=== PATIENT | male | born 1950 | race Caucasian/White ===

== ENCOUNTER 2020-01-12 12:26 | Inpatient (IN) | payer MEDICARE, OTHER ==
[2020-01-12] MEDS ORDERED: Ketorolac Tromethamine 30 MG/ML VIAL ONE (13:14)
[2020-01-12] MEDS ORDERED: HYDROcodone/Acetaminophen 10/325 mg Tablet ONE (13:14)
[2020-01-12 13:30] LABS: #Eosinphils 0.1 thou/uL (0.0-0.7); #Lymphocytes 2.2 thou/uL (1.20-3.40); #Monocytes 0.8 thou/uL (0.11-0.59); #Neutrophils 10.5 thou/uL (1.40-6.50); %Basophils 0.2 % (0.0-1.0); %Eosinophils 0.6 % (0.0-10.0); %Lymphocytes 15.9 % (21.0-51.0); %Neutrophils 77.3 % (42.0-75.0); Mean Corpuscular HGB CONC 35.1 g/dL (32.0-36.0); Mean Corpuscular Hemoglobin 33.8 pg (27.0-31.0); Mean Corpuscular Volume 96.2 fL (78.0-98.0); Platelet Count 276 thou/uL (130-400); RBC Distribution Width 11.4 % (11.5-14.5); Red Blood Cell (RBC) Count 4.16 mill/uL (4.70-6.10); White Blood Cell (WBC) Count 13.5 thou/uL (4.8-10.8)
[2020-01-12 13:39] LABS: ALT (SGPT) 46 U/L (8-55); AST (SGOT) 45 U/L (5-34); Albumin 4.3 g/dL (3.4-4.8); Alkaline Phosphatase 71 U/L (40-110); Anion Gap 14 mmol/L (10-20); BUN (Urea Nitrogen) 19 mg/dL (8.4-25.7); Bilirubin, Total 0.9 mg/dL (0.2-1.2); Calc. Creatinine Clearance 0 mL/min (70-130); Calcium 9.3 mg/dL (7.8-10.44); Carbon Dioxide 23 mmol/L (23-31); Chloride 106 mmol/L (98-107); Estimated GFR-MDRD 50; Globulin 3.1 g/dL (2.4-3.5); Glucose 202 mg/dL (80-115); Potassium 3.7 mmol/L (3.5-5.1); Protein, Total 7.4 g/dL (5.8-8.1); Sodium 139 mmol/L (136-145)
[2020-01-12] MEDS ORDERED: Morphine 4 MG/ML VIAL ONE ×2 (14:36→16:35)
[2020-01-12] MEDS ORDERED: Ondansetron PF 4 MG/2 ML Vial ONE (14:36)
--- NOTE | 2020-01-12 15:11 | RAD ---
Exam:Right shoulder 3 views HISTORY: Fall. Pain. COMPARISON: None FINDINGS: Glenohumeral joint space is preserved. No fracture or dislocation. Slight widening of the a cromioclavicular joint space with slightly high riding distal clavicle. Correlate for grade 1 AC joint separation. There appear to be traction is involving the anterior right first, second rib and posterior lateral r ight fourth, fifth and seventh ribs. No obvious pneumothorax. IMPRESSION: 1. Possible grade 1 AC joint separation. 2. Multiple right rib fractures.
--- NOTE | 2020-01-12 15:13 | RAD ---
Exam: One view chest Right RIBS 3 views HISTORY: Trauma. Fall. Pain. FINDINGS: 1. View chest Normal cardiac silhouette. Pulmonary vessels and hilum are normal. Costophrenic clear. Chronic lung parenchymal changes are suspected. There is increased lucency in the right lung apex. The possibility pneumothorax cannot. Right rib series: There are fractures involving the anterior right first and second ribs. Additional fractures involving the posterior lateral right fourth, fifth, sixth and seventh ribs. IMPRESSION: 1. Right-sided pneumothorax. 2. Multiple right rib fractures..
[2020-01-12 15:56] LABS: PTT 23.8 sec (22.9-36.1)
[2020-01-12 16:00] LABS: Alcohol Less than 10 mg/dL (Less than 10); Magnesium 2.1 mg/dL (1.6-2.6); Phosphorus 2.2 mg/dL (2.3-4.7)
[2020-01-12] MEDS ORDERED: Morphine 4 MG/ML VIAL SLOW IVP PRN (16:03)
[2020-01-12] MEDS ORDERED: Ondansetron PF 4 MG/2 ML Vial IVP PRN (16:03)
[2020-01-12] MEDS ORDERED: Dextrose 5% in Water 1,000 ML IV PRN (16:03)
[2020-01-12] MEDS ORDERED: Dextrose 50% Abboject 50 ML SYRINGE SLOW IVP PRN (16:03)
[2020-01-12] MEDS: Acetaminophen 500 MG TAB PO SCH ×2 (16:15→21:41)
[2020-01-12] MEDS ORDERED: Potassium Phosphate 30 MMOL in Sodium Chloride 0.9% 250 ML 250 ML IVPB SCH (16:15)
--- NOTE | 2020-01-12 17:21 | CT ---
CT BRAIN 01/12/20 PROVIDED CLINICAL HISTORY: Concussion symptoms, status post fall. FINDINGS: The ventricular system appears normal in size and morphology. There is no evidence for intracranial h emorrhage or mass effect. The extracranial soft tissues and osseous structures demonstrate an unremar kable CT appearance. IMPRESSION: No evidence for intracranial hemorrhage or mass effect. POS: JED
--- NOTE | 2020-01-12 17:24 | CT ---
CT CERVICAL SPINE WITHOUT CONTRAST: 01/12/20 HISTORY: Patient fell from a height of 6 feet while on a ladder. Pain. Right rib fractures. Pneumothorax. FINDINGS: No craniocervical dissociation. Appropriate alignment of the lateral masses of C1 and C2. Intact odon toid process. There is facet hypertrophy throughout the cervical spine. Soft tissue neck structures do not demonstrate any posttraumatic change. There are varying degrees of central canal stenosis and foraminal narrowing on the basis of degenerat judi change. Cervical spine vertebral body heights are maintained. No cervical spine fracture. Fracture involving the anterior right first rib, posterior right third and fourth ribs. There is post traumatic right sided pleural fluid and a right apical pneumothorax. IMPRESSION: 1. Posttraumatic change of the right hemithorax as described above. 2. No cervical spine fracture. POS: PPP
[2020-01-12 18:16] VITALS: BMI 30.1
[2020-01-12] MEDS ORDERED: hydrALAZINE 20 MG/ML VIAL SLOW IVP PRN (18:39)
--- NOTE | 2020-01-12 18:54 | CT ---
CHEST CT WITHOUT CONTRAST THORACIC AND LUMBAR SPINE CT LIMITED: 01/12/20 HISTORY: Patient fell from a height of 6 feet while on a ladder. Radiographs demonstrate pneumothorax and righ t rib fractures. FINDINGS: Mediastinum: No mass, lymphadenopathy or hematoma. Evaluation is limited by the lack of IV contrast. Normal heart size. Calcification of the aortic valve. Normal caliber aorta. Central pulmonary arterie s have a normal caliber. Subdiaphragmatic structures: No posttraumatic changes. Surgically absent gallbladder. Trachea and central bronchi: Patent. Small right sided pleural effusion suggesting blood. There are dependent atelectatic changes in both lower lobes. Possibility of a small contusion in the lateral aspect of the right lower lobe measuring 1.1 cm with peripheral edema/hemorrhage as well as contusion in the right lower lobe more linear in appearance cannot be excluded. There is a moderate right sided pneumothorax without cardiomediastinal shift. No posttraumatic changes in the left lung. Intact sternum. Intact clavicles. Intact scapula. Left ribs are intact. Fractures involving the anterior right first rib, posteromedial right second rib, posterior right thi rd rib, posterior right fourth, fifth, sixth ribs. Lateral fourth, fifth, sixth ribs. Lateral right s eventh rib. On the axial images, there are fractures involving the posterior right seventh and eighth ribs. Correlate for flail chest given two separate fractures involving the right fourth, fifth, sixt h and seventh ribs. Limited CT of the thoracic and lumbar spine: No fractures or malalignment. There is a small amount of subcutaneous emphysema in the right chest wall. IMPRESSION: 1. Moderate right sided pneumothorax. 2. At least four ribs have two separate fractures within them, raising the possibility of a flai l chest. There is associated subcutaneous emphysema in the right chest wall. 3. Possible pulmonary contusion involving the right lower lobe in two separate areas. POS: PPP
[2020-01-12] MEDS: traMADol HCl 50 MG TAB PO SCH ×2 (19:13→23:39)
[2020-01-12] MEDS: Sodium Chloride 0.9% 1,000 ML IV SCH (19:14)
--- NOTE | 2020-01-12 21:12 | HP ---
TRAUMA SURGEON: Dr. Sharma. CONSULTING PHYSICIAN: None. HISTORY OF PRESENT ILLNESS: The patient is a 69-year-old male presented to the emergency department after a fall of 6 feet from a ladder onto his right thigh. The patient reported he was climbing up the ladder when it rocked, then he subsequently fell about 6 feet onto his right side. Denies loss of consciousness. Reports he is having right-sided shoulder and chest wall pain. Denies any anticoagulation use. He was able to ambulate after the fall and was brought to the emergency department by his son. At the time of my evaluation, the patient was saturating 95% on room air. Reported he had received pain medications in the emergency department and they were working. REVIEW OF SYSTEMS: All additional 10-point review of systems negative, except as indicated above. PAST MEDICAL HISTORY: Hypertension, arthritis, hyperlipidemia, GERD, gout. 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 SOCIAL HISTORY: The patient drinks about 6 beers a day most days of the week. He denies any withdrawal symptoms when he stops drinking alcohol. Reports he does not use tobacco products or drugs. He lives at home with his . MEDICATIONS: Aspirin, fish oil, vitamin D, allopurinol, naproxen, amlodipine, and Flexeril. ALLERGIES: NO KNOWN DRUG ALLERGIES. PHYSICAL EXAMINATION: VITAL SIGNS: Temperature 97.7, pulse 85, respirations 20, oxygen saturation 95% on room air, blood pressure 153/87. PRIMARY SURVEY: Airway intact. Adequate breath sounds bilaterally. 2+ pulses in the bilateral radials, femorals, and DPs. GCS 15. Gross motor and sensation are intact. No lacerations bruising or external bleeding. SECONDARY SURVEY: HEAD: Normocephalic and atraumatic. No gross palpable skull deformities or tenderness. EYES: Pupils, 3 to 2, equal, round, reactive bilaterally. ENT: No hemotympanum. No epistaxis. No septal hematoma. Midface stable to manipulation. No blood in the oropharynx. Dentition is intact. No anterior neck injury/crepitus/tenderness. CHEST: Nontender on the left upper and lower chest wall. He has some tenderness over the right lateral and posterior chest gloria. Equal chest movement. No crepitus. No abrasions or ecchymosis. ABDOMEN: Soft, nontender, nondistended. PELVIS: Stable to palpation, nontender. No abrasions or ecchymosis. RECTAL: Deferred. GENITOURINARY: Normal external genitalia. EXTREMITIES: No gross deformities. Tenderness over the right shoulder. No abrasions or ecchymosis noted. 2+ pulses in bilateral radials, femorals, and DTs. BACK/SPINE: No step-offs or deformities or tenderness to palpation of the thoracic or lumbar spine. No abrasions or ecchymosis noted. NEUROLOGIC: 5/5 strength in the bilateral habitat conservation planner, plantar flexion, dorsiflexion, gross normal sensation x4 extremities. LABORATORY FINDINGS: White count 13.5, hemoglobin 14.0, hematocrit 40.4, platelets 276. INR 1.0. Sodium 139, potassium 3.7, chloride 106, bicarb 23, BUN 19, creatinine 1.41, glucose 202, phosphorus 2.2, magnesium 2.1, total bilirubin 0.9, AST 45, ALT 46, alkaline phosphatase 71. Plasma alcohol is less than 10. DIAGNOSTIC FINDINGS: X-ray of the right shoulder demonstrates possible grade 1 AC joint separation. Multiple right-sided rib fractures. X-ray of the ribs with chest demonstrates right-sided pneumothorax, multiple right rib fractures. CT scan of the brain demonstrates no evidence for intracranial hemorrhage or mass effect. X-ray of the C-spine demonstrates posttraumatic changes of the right hemithorax as described above. No cervical spine fracture. Chest CT demonstrates moderate right-sided pneumothorax. At least four ribs have two separate fractures within them, rising the possibility of a flail chest. There is associated subcutaneous emphysema in the right chest wall, possible pulmonary contusion involving the right lower lobe in 2 separate areas. ASSESSMENT: 1. Status post fall from ladder, about 6 feet. 2. Right-sided pneumothorax. 3. Right ribs 1 through 7 fractures. 4. Right lower lobe pulmonary contusion. 5. Concussion. 6. Grade 1 acromioclavicular joint separation. 7. Acute kidney injury. 8. History of hypertension, arthritis, hyperlipidemia, gastroesophageal reflux disease, and gout. 9. hypophosphatemia. PLAN: The patient will be admitted to Obs. Chest x-ray in the morning. We will give the patient both p.o. and p.r.n. pain medications. Both p.o. and IV pain medications scheduled and p.r.n. Repeat blood work in the morning. Regular diet. Incentive spirometry. Nasal cannula on 2 L regardless of SpO2 overnight to help resolve pneumothorax. The patient will be able to go home likely tomorrow when pain is controlled and if his right-sided pneumothorax is stable or improved. We will also provide him with a sling for his right upper extremity AC joint separation and pain, which he can wear as needed. Replace phosphorus today. This patient was discussed with Dr. Sharma before this dictation. Job ID: [id number]
[2020-01-12] MEDS: Senokot S 8.6-50 MG TAB PO SCH (21:39)
[2020-01-12] MEDS: Gabapentin 300 MG CAP PO SCH (21:40)
[2020-01-12] MEDS: Famotidine 20 MG TAB PO SCH (21:40)
[2020-01-12] MEDS: Cyclobenzaprine 10 MG TAB PO PRN (21:51)
[2020-01-13] MEDS: Sodium Chloride 0.9% 1,000 ML IV SCH (00:35)
[2020-01-13] MEDS: Acetaminophen 500 MG TAB PO SCH (05:15)
[2020-01-13] MEDS: traMADol HCl 50 MG TAB PO SCH (05:20)
[2020-01-13 05:25] LABS: #Eosinphils 0.1 thou/uL (0.0-0.7); #Lymphocytes 2.2 thou/uL (1.20-3.40); #Monocytes 1.1 thou/uL (0.11-0.59); #Neutrophils 6.9 thou/uL (1.40-6.50); %Basophils 0.3 % (0.0-1.0); %Eosinophils 0.5 % (0.0-10.0); %Lymphocytes 21.7 % (21.0-51.0); %Monocytes 10.2 % (0.0-10.0); %Neutrophils 67.3 % (42.0-75.0); Hemoglobin 12.3 g/dL (14.0-18.0); Mean Corpuscular HGB CONC 34.2 g/dL (32.0-36.0); Mean Corpuscular Hemoglobin 33.4 pg (27.0-31.0); Mean Corpuscular Volume 97.7 fL (78.0-98.0); Mean Platelet Volume 7.7 fL (7.4-10.4); Platelet Count 236 thou/uL (130-400); RBC Distribution Width 11.3 % (11.5-14.5); Red Blood Cell (RBC) Count 3.67 mill/uL (4.70-6.10); White Blood Cell (WBC) Count 10.3 thou/uL (4.8-10.8)
[2020-01-13 05:47] LABS: Anion Gap 10 mmol/L (10-20); BUN (Urea Nitrogen) 22 mg/dL (8.4-25.7); Calc. Creatinine Clearance 96 mL/min (70-130); Calcium 8.5 mg/dL (7.8-10.44); Carbon Dioxide 26 mmol/L (23-31); Chloride 105 mmol/L (98-107); Estimated GFR-MDRD 79; Glucose 124 mg/dL (80-115); Magnesium 2.2 mg/dL (1.6-2.6); Phosphorus 4.2 mg/dL (2.3-4.7); Potassium 3.9 mmol/L (3.5-5.1); Sodium 137 mmol/L (136-145)
[2020-01-13] MEDS ORDERED: Potassium Chloride 20 MEQ TAB PO SCH (08:00)
[2020-01-13] MEDS: Senokot S 8.6-50 MG TAB PO SCH ×2 (08:47→20:37)
[2020-01-13] MEDS: Cyclobenzaprine 10 MG TAB PO PRN (08:47)
[2020-01-13] MEDS: Polyethylene Glycol 3350 17 GM Packet PO SCH (08:47)
[2020-01-13] MEDS: Gabapentin 300 MG CAP PO SCH ×3 (08:48→20:36)
[2020-01-13] MEDS: Famotidine 20 MG TAB PO SCH ×2 (08:48→20:36)
[2020-01-13] MEDS: Amlodipine 5 MG TAB PO SCH (08:48)
[2020-01-13] MEDS: Allopurinol 100 MG TAB PO SCH (08:49)
[2020-01-13] MEDS ORDERED: Allopurinol 100 MG TAB PO SCH (09:00)
[2020-01-13] MEDS ORDERED: Acetaminophen/Codeine 30-300mg Tablet PO PRN (10:02)
[2020-01-13] MEDS: Acetaminophen/Codeine 30-300mg Tablet PO SCH ×3 (10:14→21:02)
[2020-01-13] MEDS: Acetaminophen 325 MG TAB PO SCH ×3 (10:14→21:02)
[2020-01-13] MEDS ORDERED: Lidocaine 5% Patch TD SCH (10:15)
--- NOTE | 2020-01-13 11:17 | RAD ---
PORTABLE CHEST: Date: 01/13/2020 HISTORY: Right pneumothorax. FINDINGS: Correlation made to CT of 01/12/2020. Probable tiny residual pneumothorax seen in the right apex. There are right-sided rib fractures noted posteriorly which are displaced. Lungs are otherwise aerated and clear. Small right effusion. IMPRESSION: Evidence of small right apical pneumothorax. Numerous right-sided displaced rib fractures. POS: AGW
[2020-01-13 13:43] LABS: SARS-CoV-2 MS2 Positive; SARS-CoV-2 N Gene Negative; SARS-CoV-2 S Gene Negative; SARS-CoV-2 by NAA Not Detected (NotDetected); SARS-CoV-2 orf1ab Negative
--- NOTE | 2020-01-13 19:57 | PRG ---
DATE OF SERVICE: 01/13/2020 SUBJECTIVE: The patient was seen this morning during rounds. He was sitting up in bed with some mild distress. The patient's pain was not controlled. He was taking short breaths, was only able to pull about 800 to a 1000 on his incentive spirometer. Not able to take deep breath or cough. The patient reports he has been taking his pain medications and states that his pain is about a 5/10. Tolerating a diet. Has gotten up out of bed and walked to the restroom. Right upper extremity in sling. OBJECTIVE: VITAL SIGNS: Temperature 98, pulse 69, respirations 16, oxygen saturation 98% on 1.5 L nasal cannula, blood pressure 169/97. GENERAL: Well-appearing elderly male, sitting up in bed with some mild distress. PULMONARY: Equal chest rise and fall. Low lung volumes on auscultation. Some mild respiratory distress. CARDIAC: Regular rate and rhythm. GI: Abdomen is soft, nontender, nondistended. EXTREMITIES: 2+ pulses in all extremities. Gross motor and sensation intact. No significant swelling noted. Right upper extremity with sling in place. NEUROLOGIC: GCS is 15. LABORATORY FINDINGS: White count 10.3, hemoglobin 12.3, hematocrit 35.9, platelets 236. Sodium 137, potassium 3.9, chloride 105, bicarb 26, BUN 22, creatinine 0.95, glucose 124, phosphorus 4.2, magnesium 2.2. DIAGNOSTIC FINDINGS: Chest x-ray completed this morning demonstrates evidence of small right apical pneumo, numerous right-sided displaced rib fractures. ASSESSMENT: 1. Status post fall 6 feet from a ladder. 2. Right pneumothorax, stable. 3. Right ribs 1 through 7 fractures. 4. Right lower lobe pulmonary contusion. 5. Concussion. 6. Mild AC joint separation. 7. Acute kidney injury, resolved. 8. History of hypertension, arthritis, hyperlipidemia, gout, and gastroesophageal reflux disease. PLAN: Continue regular diet. Discontinue IV fluids. Restart home medications, but hold naproxen. We will discontinue tramadol and place the patient on Tylenol 3 and add Lidoderm patches for pain control. Re-evaluate later. Possible discharge later today versus tomorrow once adequate pain control is achieved. This patient was discussed with Dr. Landis before this dictation. Job ID: [id number]
[2020-01-13] MEDS: Lidocaine Patch Removal 1 EACH TOP SCH (20:37)
[2020-01-13] MEDS: Oxazepam 10 MG CAP PO SCH (21:02)
--- NOTE | 2020-01-14 00:25 | PRG ---
DATE OF SERVICE: 01/13/2020 SUBJECTIVE: The patient remains on the surgical floor, awake, alert, in no distress. The patient is currently talking on the phone with some occasional grunting. The patient does report walking earlier today. The patient continues to have pain with deep coughing. The patient is able to pull 1000 to 1500 with his incentive spirometer. OBJECTIVE: VITAL SIGNS: Stable, afebrile. Urinary output has been adequate for patient's age and weight. PLAN: Continue Tylenol 3 scheduled and one p.r.n. for pain control. Continue aggressive pulmonary toilet with the use of incentive spirometer every hour while awake. We will add Serax as the patient is a daily drinker. Once the patient's pain is well controlled and able to improve with his incentive spirometer, the patient should be able to be discharged home. He was instructed to increase activity. Job ID: [id number] MTDD
[2020-01-14] MEDS: Acetaminophen 325 MG TAB PO SCH ×4 (03:55→21:09)
[2020-01-14] MEDS: Acetaminophen/Codeine 30-300mg Tablet PO SCH ×4 (03:55→21:09)
[2020-01-14] MEDS: Oxazepam 10 MG CAP PO SCH ×3 (05:29→21:11)
[2020-01-14 05:53] LABS: #Lymphocytes 1.3 thou/uL (1.20-3.40); #Monocytes 0.8 thou/uL (0.11-0.59); #Neutrophils 7.8 thou/uL (1.40-6.50); %Basophils 0.4 % (0.0-1.0); %Eosinophils 0.3 % (0.0-10.0); %Lymphocytes 13.1 % (21.0-51.0); %Monocytes 7.5 % (0.0-10.0); %Neutrophils 78.7 % (42.0-75.0); Hemoglobin 10.9 g/dL (14.0-18.0); Mean Corpuscular HGB CONC 34.9 g/dL (32.0-36.0); Mean Corpuscular Hemoglobin 33.7 pg (27.0-31.0); Mean Corpuscular Volume 96.8 fL (78.0-98.0); Mean Platelet Volume 7.8 fL (7.4-10.4); Platelet Count 215 thou/uL (130-400); RBC Distribution Width 11.2 % (11.5-14.5); Red Blood Cell (RBC) Count 3.25 mill/uL (4.70-6.10); White Blood Cell (WBC) Count 9.9 thou/uL (4.8-10.8)
[2020-01-14 06:42] LABS: Anion Gap 11 mmol/L (10-20); BUN (Urea Nitrogen) 20 mg/dL (8.4-25.7); Calc. Creatinine Clearance 101 mL/min (70-130); Calcium 8.4 mg/dL (7.8-10.44); Carbon Dioxide 27 mmol/L (23-31); Chloride 100 mmol/L (98-107); Estimated GFR-MDRD 84; Glucose 141 mg/dL (80-115); Magnesium 2.1 mg/dL (1.6-2.6); Phosphorus 2.3 mg/dL (2.3-4.7); Potassium 4.2 mmol/L (3.5-5.1); Sodium 134 mmol/L (136-145)
[2020-01-14] MEDS ORDERED: Sodium Phosphate 15 MMOL in Sodium Chloride 0.9% 250 ML 250 ML IVPB SCH (08:00)
[2020-01-14] MEDS: Lidocaine 5% Patch TD SCH (08:35)
[2020-01-14] MEDS: Polyethylene Glycol 3350 17 GM Packet PO SCH (08:35)
[2020-01-14] MEDS: Famotidine 20 MG TAB PO SCH (08:36)
[2020-01-14] MEDS: Senokot S 8.6-50 MG TAB PO SCH ×2 (08:36→21:08)
[2020-01-14] MEDS: Amlodipine 5 MG TAB PO SCH (08:37)
[2020-01-14] MEDS: Allopurinol 100 MG TAB PO SCH (08:37)
[2020-01-14] MEDS: Gabapentin 300 MG CAP PO SCH ×3 (08:37→21:08)
[2020-01-14] MEDS ORDERED: traMADol HCl 50 MG TAB PO SCH (12:45)
[2020-01-14] MEDS: Ibuprofen 600 MG TAB PO SCH ×2 (13:37→21:09)
--- NOTE | 2020-01-14 14:05 | PRG ---
DATE OF SERVICE: 01/14/2020 SUBJECTIVE: The patient was seen in surgical floor during morning rounds. He states that currently his pain was well controlled when he is at rest, rating at 0/10. However, with any sort of activity, his rib fractures gave him a lot of pain significantly limiting how deep he breaths and is ability to cough. Utilized the bedside spirometer and was only able to pull about 600. We discussed adjusting his pain regimen for this to help improve his functional capacity. He is getting up from walking to the bathroom on his own and was able to do one lap with PT around 4. OBJECTIVE: VITAL SIGNS: Temperature 98.3, pulse 82, respirations 16, oxygen saturation 93% on room air, and blood pressure 155/83. GENERAL: The patient was sitting up in bed, in no acute distress. PULMONARY: Shallow inspirations. No obvious respiratory distress. Equal chest rise and fall. CARDIAC: Regular rate and rhythm. GI: Abdomen is soft, nontender, nondistended. EXTREMITIES: 2+ pulses in all extremities with intact distal motor and sensation. Right upper extremity with cross body sling in place. NEUROLOGIC: GCS 15. LABORATORY FINDINGS: WBC 9.9, hemoglobin 10.9, and platelets 215. Sodium 134, potassium 4.2, creatinine 0.9, glucose 141, phosphorus 2.3, and magnesium 2.1. ASSESSMENT: 1. Status post fall from ladder at 6 feet. 2. Right pneumothorax, stable. 3. Right ribs 1 through 7 fracture. 4. Right lower lobe pulmonary contusion. 5. Concussion. 6. Mild right acromioclavicular joint separation. 7. History of hypertension, arthritis, hyperlipidemia, gout, gastroesophageal reflux disease. PLAN: The patient is tolerating diet well and will continue. We have resumed his home medications. The patient's pain control is not sufficient at this time. We will allow adequate function. We will add on scheduled tramadol to his current regimen and re-evaluate. Once we had the patient's pain well controlled on a specific regimen, we will attempt to wean him off to a level that he remains comfortable prior to discharge. This patient was seen with Dr. Aric Landis on morning rounds with the rest of Trauma Team. Job ID: [id number] [facility]
[2020-01-14] MEDS: traMADol HCl 50 MG TAB PO SCH (17:37)
[2020-01-14] MEDS: Lidocaine Patch Removal 1 EACH TOP SCH (21:09)
--- NOTE | 2020-01-14 23:15 | PRG ---
DATE OF SERVICE: 01/14/2020 SUBJECTIVE: The patient was seen during evening rounds, awake, alert, in no distress, ambulating in his room. The patient states that he had just attempted to have a bowel movement with no success. The patient does report feeling much better than he did yesterday. The patient reports a new medication, which was added today has helped a lot. The patient continues to use his incentive spirometer every hour, but is only able to pull 1000 mL. The patient's cough is much stronger and deeper to this evening than it was yesterday evening. OBJECTIVE: Vital signs are stable. SpO2 is 93% on room air. The patient is afebrile. Urinary output is adequate for patient's age and weight. PLAN: Continue supportive care and pain regimen. Continue bowel regimen. Increase activity and have patient ambulate as much as possible. The patient has been instructed to only be in the bed while sleeping. If the patient's pain is well controlled in the morning, he may likely be able to be discharged home. Job ID: [id number]
[2020-01-15] MEDS: traMADol HCl 50 MG TAB PO SCH ×3 (00:06→13:40)
[2020-01-15] MEDS: Acetaminophen/Codeine 30-300mg Tablet PO SCH ×3 (04:07→15:01)
[2020-01-15] MEDS: Acetaminophen 325 MG TAB PO SCH ×3 (04:07→15:02)
[2020-01-15 05:07] LABS: Hemoglobin 10.5 g/dL (14.0-18.0); Mean Corpuscular Hemoglobin 32.7 pg (27.0-31.0); Mean Corpuscular Volume 96.1 fL (78.0-98.0); Platelet Count 213 thou/uL (130-400); RBC Distribution Width 11.4 % (11.5-14.5); White Blood Cell (WBC) Count 8.7 thou/uL (4.8-10.8)
[2020-01-15 05:41] LABS: Anion Gap 17 mmol/L (10-20); BUN (Urea Nitrogen) 18 mg/dL (8.4-25.7); Calc. Creatinine Clearance 108 mL/min (70-130); Calcium 8.3 mg/dL (7.8-10.44); Carbon Dioxide 23 mmol/L (23-31); Chloride 99 mmol/L (98-107); Estimated GFR-MDRD Greater than 90; Glucose 111 mg/dL (80-115); Phosphorus 2.5 mg/dL (2.3-4.7); Potassium 3.5 mmol/L (3.5-5.1); Sodium 135 mmol/L (136-145)
[2020-01-15] MEDS: Oxazepam 10 MG CAP PO SCH ×2 (06:19→15:01)
[2020-01-15] MEDS: Ibuprofen 600 MG TAB PO SCH ×2 (06:19→13:41)
[2020-01-15] MEDS: Senokot S 8.6-50 MG TAB PO SCH (08:30)
[2020-01-15] MEDS: Allopurinol 100 MG TAB PO SCH (08:31)
[2020-01-15] MEDS: Gabapentin 300 MG CAP PO SCH ×2 (08:31→15:02)
[2020-01-15] MEDS: Amlodipine 5 MG TAB PO SCH (08:32)
[2020-01-15] MEDS: Polyethylene Glycol 3350 17 GM Packet PO SCH (08:34)
[2020-01-15] MEDS: Lidocaine 5% Patch TD SCH (08:34)
[2020-01-15] MEDS ORDERED: Thiamine 100 MG TAB PO SCH (09:00)
[2020-01-15] MEDS ORDERED: Enoxaparin Sodium 40 MG/0.4 ML SYRINGE SC SCH (09:00)
[2020-01-15] MEDS ORDERED: Multivitamin W/ Minerals 1 TAB PO SCH (09:00)
[2020-01-15] MEDS ORDERED: Folic Acid 1 MG TAB PO SCH (09:00)
--- NOTE | 2020-01-15 09:08 | RAD ---
Chest one view HISTORY: Pneumothorax. Chest injury. COMPARISON: 01/13/2020. FINDINGS: Cardiac silhouette is now partially obscured by opacity at the right base having the appear ance of pleural fluid and basilar atelectasis. Mediastinum remains midline. Left lung well-inflated. Right apical pneumothorax again demonstrated with apical pleura at the third posterior intercostal sp jose. (Previously at the second intercostal space. Acute right rib fractures and old left rib fractures are stable. IMPRESSION : Slight interval enlargement of the right apical pneumothorax since the 01/03/2020 study. Interval appearance of right basilar atelectasis and small amount right pleural fluid (possibly blood ).
[2020-01-15 11:47] VITALS: TEMP 98
[2020-01-15 15:36] VITALS: BP 153/72
--- NOTE | 2020-01-15 18:07 | DIS ---
DATE OF ADMISSION: 01/14/2020 DATE OF DISCHARGE: 01/15/2020 ADMISSION DIAGNOSES: 1. Status post fall from ladder, approximately 6 feet. 2. Right-sided pneumothorax. 3. Right ribs 1 through 7 fractures. 4. Right lower lobe pulmonary contusion. 5. Concussion. 6. Grade 1 acromioclavicular joint separation. 7. Acute kidney injury. 8. History of hypertension. 9. Arthritis. 10. Hyperlipidemia. 11. Gastroesophageal reflux disease. 12. Gout. CONSULTATIONS: Orthopedics, Dr. Noel. PROCEDURES: None. HOSPITAL COURSE: The patient is a 69-year-old man, who was brought to the Emergency Department after falling approximately 6 feet from a ladder. He denied loss of consciousness. He underwent evaluation and examination and was noted to have the above injuries. He would be admitted for pain control overnight. On hospital day 2, his pain still was not adequately controlled. Adjustments were made. The patient was able to work with Physical and Occupational Therapy and the following day, he was able to draw over a 1000 on his incentive spirometry and had walked 500 feet with physical therapy in the morning. The patient's chest x-ray at discharge did show a small residual right-sided pneumothorax and we will follow him up in 1 week with a repeat chest x-ray. He will be seen sooner and was given return precautions as indicated. At the time of discharge, the patient's Aristeo Coma Scale is 15. He was ambulatory. His pain was controlled and was voiding without difficulty. Job ID: [id number]
== END 2020-01-15 17:16 | disposition home or self-care (01) | DRG 200 ==
LOC: ERS 12:26 → SURG A 18:04 → OBSVTOIN 01-14 10:25
PROVIDERS: ADMIT Surgery; ATTEND Surgery
DX: S27.0XXA Traumatic pneumothorax, initial encounter (principal); S22.41XA Multiple fractures of ribs, right side, initial encounter for closed fracture; S27.321A Contusion of lung, unilateral, initial encounter; N17.9 Acute kidney failure, unspecified; Z20.828 Contact with and (suspected) exposure to other viral communicable diseases; W11.XXXA Fall on and from ladder, initial encounter; S06.0X0A Concussion without loss of consciousness, initial encounter; I10 Essential (primary) hypertension; M19.90 Unspecified osteoarthritis, unspecified site; E78.5 Hyperlipidemia, unspecified; K21.9 Gastro-esophageal reflux disease without esophagitis; M10.9 Gout, unspecified; S43.101A Unspecified dislocation of right acromioclavicular joint, initial encounter; E83.39 Other disorders of phosphorus metabolism; R40.2414 Glasgow coma scale score 13-15, 24 hours or more after hospital admission; Z79.82 Long term (current) use of aspirin
CPT/HCPCS: 36415; 70450; 71045; 71250; 72125; 80048; 80053; 80307; 83735; 84100; 85025; 85027; 85610; 85730; 87635; 96361; 96372; 96374; 96375; 96376; G0378; J1650; J1885; J2270; J2405; J7050; U0003